=== PATIENT | male | born 1945 | race Caucasian/White ===

== ENCOUNTER 2016-12-24 12:46 | Emergency (ER) | payer OTHER ==
[~2016-12-24] VITALS: Ht 180.3 cm; Wt 83.9 kg
[2016-12-24] MEDS ORDERED: METO12TA PO (13:00)
[2016-12-24] MEDS ORDERED: METF500T PO (13:00)
[2016-12-24] MEDS ORDERED: INSULANT SC (13:00)
[2016-12-24] MEDS ORDERED: AMLO10TA2 PO (13:00)
[2016-12-24] MEDS ORDERED: GLIP10TA6 PO (13:00)
[2016-12-24] MEDS ORDERED: LOSA50TA21 PO (13:00)
--- NOTE | 2016-12-24 14:13 | REP ---
Chest one-view HISTORY: Infarction Comparison: None The lungs are clear. The heart is normal in size. The pulmonary vasculature is normal in appearance. Impression: No acute disease. Signed by Tutu Martinez MD 12/24/2016 02:04 P
--- NOTE | 2016-12-24 14:16 | REP ---
CT HEAD WITHOUT CONTRAST: HISTORY: Infarction. Areas of decreased attenuation are present in the periventricular white matter. This represents small vessel ischemic disease. There is no intraparenchymal hemorrhage, mass or midline shift. The ventricular system and cortical sulci are dilated consistent with mild volume loss. There is no extracerebral collection. The visualized sinuses are clear. IMPRESSION: 1. Small vessel ischemic disease. 2. Mild volume loss. Signed by Tutu Martinez MD 12/24/2016 02:18 P
[2016-12-24 14:22] LABS: BASO % 0.3 % (0.0-1.0); EOS # 0.6 K/mm3 (0.0-0.50); EOS % 8.8 % (0.0-3.0); LARGE UNSTAINED CELL # 0.1 K/mm3 (0.0-0.4); LARGE UNSTAINED CELL % 1.8 % (0.0-4.0); LYMPH # 2.2 K/mm3 (1.5-4.5); LYMPH % 28.6 % (24.0-44.0); MEAN CORPUSCULAR HEMOGLOBIN 31.1 pg (27.0-33.0); MEAN CORPUSCULAR HGB CONC 33.9 g/dl (32.0-36.5); MEAN CORPUSCULAR VOLUME 91.7 fl (80.0-96.0); MONO # 0.5 K/mm3 (0.0-0.8); MONO % 6.4 % (0.0-5.0); NEUTROPHILS # 3.9 K/mm3 (1.8-7.7); NEUTROPHILS % 54.1 % (36.0-66.0); PLATELET COUNT, AUTOMATED 331 k/mm3 (150-450); RED CELL DISTRIBUTION WIDTH 12.6 % (11.5-14.5); WHITE BLOOD COUNT 7.2 K/mm3 (4.0-10.0)
[2016-12-24 14:32] LABS: INR 0.96
[2016-12-24 14:58] LABS: ANION GAP 5 MEQ/L (8-16); BLOOD UREA NITROGEN 19 MG/DL (7-18); CALCIUM LEVEL 9.5 MG/DL (8.8-10.2); CARBON DIOXIDE LEVEL 29 MEQ/L (21-32); CHLORIDE LEVEL 104 MEQ/L (98-107); CREATININE FOR GFR 1.22 MG/DL (0.70-1.30); GLOMERULAR FILTRATION RATE > 60.0 (>42); GLUCOSE, FASTING 245 MG/DL (83-110); SODIUM LEVEL 138 MEQ/L (136-145)
[2016-12-24] MEDS ORDERED: MECLIZINE 25 MG TABLET PO ONE (16:30)
--- NOTE | 2016-12-24 16:33 | REP ---
MRA BRAIN WITHOUT CONTRAST: HISTORY: Infarction. 3D TOF MR angiography was performed at the level of the cheesh-na of [place]. The examination is limited secondary to motion. There is no aneurysm or arteriovenous malformation. Mild atherosclerotic disease involves the cavernous internal carotid arteries. Major intracranial vessels are patent. The right vertebral artery is dominant. IMPRESSION: 1. There is no aneurysm or arteriovenous malformation. 2. Atherosclerotic disease as described above. Signed by Tutu Martniez MD 12/24/2016 04:36 P
--- NOTE | 2016-12-24 16:36 | REP ---
MR BRAIN WITHOUT CONTRAST: HISTORY: Infarction. COMPARISON: CT 12/24/2016 An area of increased signal intensity on T2-weighted images is present in the right thalamus. This represents and old lacunar infarction. Scattered punctate areas of increased signal intensity on T2-weighted images are present in the periventricular and subcortical white matter. These represent small vessel ischemic disease. There is no intraparenchymal hemorrhage, acute infarct, mass or midline shift. The ventricular system and cortical sulci are dilated consistent with mild volume loss. There is no extracerebral collection. The sinuses are clear. IMPRESSION: 1. 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 2. Small vessel ischemic disease. 3. Mild volume loss. Signed by Tutu Martinez MD 12/24/2016 04:41 P
[2016-12-24 17:34] VITALS: BP 137/74
[2016-12-24] MEDS ORDERED: MECL-86 PO (17:58)
[2016-12-24] MEDS ORDERED: AMOX875T PO (18:08)
--- NOTE | 2016-12-25 08:19 | ECGEPIP ---
Stationary ECG Study [facility] - ED Test Date: 2016-12-24 Pat Name: ULICES CARRILLO Department: Room: - Gender: M [employer]: : [id number] Requested By: Luis Lewis Order Number: [id number] Reading MD: Kendra Ghotra Measurements Intervals [place] Rate: 75 P: 35 LA: 176 QRS: -31 QRSD: 148 T: 6 QT: 422 QTc: 474 Interpretive Statements SINUS RHYTHM INDETERMINATE AXIS RIGHT BUNDLE BRANCH BLOCK POSSIBLE INFERIOR INFARCT, ?AGE NO PRIOR FOR COMPARISON Electronically Signed On 12-25-2016 8:19:07 EDT by Kendra Ghotra
== END 2016-12-24 18:19 | disposition home or self-care (01) ==
LOC: EDBD 12:46 → M ED 13:56
DX: I45.10 Unspecified right bundle-branch block (principal); H83.09 Labyrinthitis, unspecified ear; I67.9 Cerebrovascular disease, unspecified; I10 Essential (primary) hypertension; E11.9 Type 2 diabetes mellitus without complications; M51.36 Other intervertebral disc degeneration, lumbar region; Z79.4 Long term (current) use of insulin; Z90.89 Acquired absence of other organs; Z87.442 Personal history of urinary calculi